=== PATIENT | male | born 1955 | race Caucasian/White ===

== ENCOUNTER 2019-04-05 05:59 | Outpatient (CLI) | payer BC ==
[~2019-04-05] VITALS: Ht 180 cm; Wt 109.0 kg
[2019-04-05] MEDS ORDERED: ASCO500T6 PO (12:16)
[2019-04-05] MEDS ORDERED: LYSI100014 PO (12:16)
[2019-04-05] MEDS ORDERED: MULT1CAP27 PO (12:16)
[2019-04-07] MEDS ORDERED: PANT40TA2 PO (15:07)
[2019-04-07] MEDS ORDERED: SUCR1TAB36 PO (15:07)
== END 2019-04-05 13:28 | disposition home or self-care (01) ==
LOC: PREOP 05:59
PROVIDERS: ATTEND Surgery
DX: Z01.818 Encounter for other preprocedural examination (principal)

== ENCOUNTER → 2019-04-05 | Outpatient (CLI) | payer BC ==
[~2019-04-05] MED LIST: ASCO500T6 PO; BARIUM for suspension 96% w/w (Vanilla Silq Medium Density) PO ONE; BARIUM for suspension 98% w/w (Vanilla Silq High Density) PO ONE; LYSI100014 PO; MULT1CAP27 PO; PANT40TA2 PO; SUCR1TAB36 PO
--- NOTE | 2019-04-05 11:05 | Diagnostic Imaging Report ---
INDICATION: Dysphagia. Patient ingested effervescent crystals as well as thin and thick barium and imaging of the esophagus was performed. Preliminary radiograph of the chest is unremarkable. Post ingestion images of the esophagus demonstrate a fairly smooth contour to the esophagus. No mass or stricture is identified. Barium passes freely into the stomach. No gastroesophageal reflux or hiatal hernia was demonstrated. IMPRESSION: Unremarkable esophagram. Dictated by: Dictated on workstation # [id number]
== END ==
LOC: RAD 09:42 → EDUNIT# 09:45
PROVIDERS: ATTEND Surgery
DX: R13.10 Dysphagia, unspecified (principal)
CPT/HCPCS: 74220

== ENCOUNTER → 2021-02-05 | Outpatient (CLI) | payer BC ==
[~2021-02-05] MED LIST changes: +ASCO500T17 PO; -ASCO500T6 PO; -BARIUM for suspension 96% w/w (Vanilla Silq Medium Density) PO ONE; -BARIUM for suspension 98% w/w (Vanilla Silq High Density) PO ONE
--- NOTE | 2021-02-05 17:52 | Diagnostic Imaging Report ---
INDICATION: Pain. FINDINGS: Three-view left foot showed no fracture, dislocation, or acute articular irregularities. There is plantar calcaneal spurring. No abnormal periosteal reaction. No bony destruction or erosion. No gas or foreign body. IMPRESSION: Unremarkable three-view foot. Dictated by: Dictated on workstation # [id number]
== END ==
LOC: RAD FS 14:58
PROVIDERS: ATTEND Nurse Practitioner Family
DX: M79.672 Pain in left foot (principal)
CPT/HCPCS: 73630